=== PATIENT | male | born 1970 | race Two or more races ===

== ENCOUNTER 2025-08-18 12:13 | Emergency (ER) | payer OTHER ==
[~2025-08-18] VITALS: Ht 172.7 cm; Wt 99.8 kg
[2025-08-18] MEDS ORDERED: DEXAMETHASONE SODIUM PHOSPHATE 4 MG/ML VIAL IM STA (14:04)
[2025-08-18] MEDS ORDERED: ORPHENADRINE CITRATE 30 MG/ML AMPUL IM STA (14:04)
[2025-08-18] MEDS ORDERED: TETANUS & DIPHTHERIA TOX,ADULT 0.5 ML VIAL IM ONE (14:15)
[2025-08-18] MEDS ORDERED: KETOROLAC TROMETHAMINE 30 MG VIAL IM ONE (14:15)
[2025-08-18] MEDS ORDERED: KETOROLAC TROMETHAMINE 30 MG VIAL ONE (15:08)
[2025-08-18] MEDS ORDERED: DIPHTH,PERTUSS(ACELL),TET VAC 0.5 ML SYRINGE IM ONE (15:09)
[2025-08-18] MEDS ORDERED: ORPHENADRINE CITRATE 30 MG/ML AMPUL ONE (15:09)
[2025-08-18] MEDS ORDERED: DEXAMETHASONE SODIUM PHOSPHATE 4 MG/ML VIAL ONE (15:09)
== END 2025-08-19 02:22 | disposition left against medical advice (07) ==
LOC: ER 12:13
DX: S91.131A Puncture wound without foreign body of right great toe without damage to nail, initial encounter (principal); W26.8XXA Contact with other sharp object(s), not elsewhere classified, initial encounter; Y93.89 Activity, other specified; Y92.832 Beach as the place of occurrence of the external cause; Y99.8 Other external cause status
CPT/HCPCS: 73630; 90471; 90714; 96372; 99283; J1100; J1670; J1885; J2360